=== PATIENT | female | born 1955 | race African-American/Black ===

== ENCOUNTER 2016-06-21 14:54 | Emergency (ER) | payer OTHER ==
[~2016-06-21] VITALS: Ht 160 cm; Wt 43.2 kg
[~2016-06-21 14:54] MED LIST: DILANTIN PO
[2016-06-21 15:42] VITALS: BP 124/65
== END 2016-06-21 16:24 | disposition home or self-care (01) ==
LOC: EMS 14:55
DX: H57.11 Ocular pain, right eye (principal); Z88.0 Allergy status to penicillin
CPT/HCPCS: 99283

== ENCOUNTER 2016-07-26 21:24 | Emergency (ER) | payer OTHER ==
[~2016-07-26] VITALS: Ht 160 cm; Wt 43.2 kg
[2016-07-27 02:02] VITALS: BP 137/63
== END 2016-07-27 02:04 | disposition home or self-care (01) ==
LOC: EMS 21:32
DX: S23.29XA Dislocation of other parts of thorax, initial encounter (principal); B19.20 Unspecified viral hepatitis C without hepatic coma; X58.XXXA Exposure to other specified factors, initial encounter; Y93.89 Activity, other specified; Y92.89 Other specified places as the place of occurrence of the external cause; Y99.8 Other external cause status
CPT/HCPCS: 99283; 99406

== ENCOUNTER 2022-09-28 17:42 | Emergency (ER) | payer MEDICARE, OTHER ==
[~2022-09-28] VITALS: Ht 160 cm; Wt 43.2 kg
[2022-09-28] MEDS ORDERED: CYCL-448 PO (22:56)
[2022-09-28] MEDS ORDERED: KETOROLAC TROMETHAMINE 30 MG/ML VIAL IM ONE (23:00)
[2022-09-28 23:14] VITALS: BP 170/88
== END 2022-09-28 23:35 | disposition home or self-care (01) ==
LOC: EMS 17:45
DX: S43.401A Unspecified sprain of right shoulder joint, initial encounter (principal); Z88.0 Allergy status to penicillin; X50.9XXA Other and unspecified overexertion or strenuous movements or postures, initial encounter; Y93.89 Activity, other specified; Y92.89 Other specified places as the place of occurrence of the external cause; Y99.8 Other external cause status
CPT/HCPCS: 99283; 73030; 96372; J1885